=== PATIENT | female | born 1960 | race Two or more races ===

== ENCOUNTER 2016-10-27 13:04 | Emergency (ER) | payer OTHER ==
--- NOTE | 2016-10-27 14:50 | RAD ---
RIBS LEFT W PA CHEST COMPARISON: Chest 2 views, 02/26/2015 HISTORY: Fell at work today, landing on left arm. Left-sided rib pain. FINDINGS: Views: PA chest. 3 spot views of the left ribs. Ribs: Normal. No fracture or bone destruction. Lungs: Normal. No pneumothorax. Heart and vessels: Normal. Trachea and bronchi: Normal. Mediastinum and vera: Normal. Costophrenic sulci: Normal. Spine: Normal. Chest wall: Normal. IMPRESSION: 1. Normal study
--- NOTE | 2016-10-27 14:51 | RAD ---
HUMERUS LEFT COMPARISON: None. HISTORY: Fell at work today. Landed on left arm. Left arm and shoulder pain. FINDINGS: Views: Left humerus AP and internal rotation. Bones: Normal. Joints: Normal. Soft tissues: Normal. IMPRESSION: 1. Normal study.
--- NOTE | 2016-10-27 14:52 | RAD ---
SHOULDER-LEFT 2 OR MORE VIEWS History: Fall. Comparison: None. Findings: The osseous structures appear to be intact with no discrete fracture visualized. The glenohumeral alignment appears to be within expected. The acromiohumeral distance is well maintained. No soft tissue calcifications are identified. The acromioclavicular joint is not widened. The included lung field appears to be unremarkable. Impression: 1. Negative views of the left shoulder.
[2016-10-27] MEDS ORDERED: IBUPROFEN 800 MG TABLET ONE (15:19)
[2016-10-27] MEDS ORDERED: CYCLOBENZAPRINE HCL 10 MG TABLET ONE (15:19)
== END 2016-10-27 15:46 | disposition home or self-care (01) ==
LOC: ED 13:04
DX: M25.512 Pain in left shoulder (principal); E11.9 Type 2 diabetes mellitus without complications; Z79.84 Long term (current) use of oral hypoglycemic drugs; W01.0XXA Fall on same level from slipping, tripping and stumbling without subsequent striking against object, initial encounter; Y93.H9 Activity, other involving exterior property and land maintenance, building and construction; Y92.74 Orchard as the place of occurrence of the external cause; Y99.0 Civilian activity done for income or pay
CPT/HCPCS: 73060; 71101; 73030; 99283 ×2; A9270